=== PATIENT | female | born 1930 | race Caucasian/White ===

== ENCOUNTER 2017-01-04 12:49 | Inpatient (IN) | payer MEDICARE ==
[~2017-01-04] VITALS: Ht 165.1 cm; Wt 73.1 kg
--- NOTE | ~2017-01-04 | HP ---
History And Physical [place] [id number] [facility]. [address] NAME: PRIETO EPPS : [birth year] STATUS : ADM IN [facility]#: [id number] AGE: 86 ADM/REG DATE : 01/04/17 MR#: [id number] REPORT SERV DATE: 01/05/17 DICTATED BY: GINA EDWARDS DATE: 01/04/17 REPORT STATUS : Draft TRANSCRIBED BY: MODL DATE: 01/04/17 DATE OF ADMISSION: 01/04/2017 REASON FOR ADMISSION: Altered mental status in face of ongoing therapy for glioblastoma multiforme. HISTORY: This is an 86-year-old white female, who underwent neurosurgical resection by Dr. Ramiro Pritchard for glioblastoma multiforme. She recovered fairly well with some confusion only at baseline and was seen by Dr. Pacheco and Dr. Roth for followup therapy. Most of the tumor was resected. 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 The patient was going up and down stairs and doing laundry yesterday, but last night, began to become more lethargic, withdrawn, and having trouble with her speech. She continued to have problems now with nausea and vomiting, was brought to the emergency room, where she was evaluated by Dr. Kait Ching. Her CT scan of the brain did show some swelling in the right temporoparietal and occipital lobes with mild left shift. Dr. Ching discussed this with Dr. Do, who desire that she be admitted to the hospital by the hospitalist and started on steroids and consult Oncology. The patient is being admitted to the hospital for staging and evaluation by the oncologist. PAST MEDICAL HISTORY: She has hypothyroidism, history of acid reflux, lumpectomy in 1988 with postoperative radiation therapy for early stage breast cancer. She had hysterectomy in 1958, rotator cuff repair in 1989, and previous radiation therapy to right breast. FAMILY HISTORY: Mother had breast cancer. She has sister with breast cancer. She has one son who is alive and well, he denies health problems. SOCIAL HISTORY: She was to Mr. Rudolph initially, they , they had one son. She lives in his home now. Her second after about 50 years of marriage, and she continues to live with her son now. She had did not smoke or take any alcohol. She attends jain at [employer] and lives in that area. ALLERGIES: SULFA DRUGS. HOME MEDICATIONS: Yet to be identified. REVIEW OF SYSTEMS: Not obtainable from the patient. History is obtained from son and [id number] and old record. Otherwise negative review of systems. PHYSICAL EXAMINATION: GENERAL: This is an elderly white female, appearing younger than stated age, in moderate distress. She favors the right side and moves to the right side, but has no shaking or jerking. She says only two words, oh no and oh Lord. She seems to understand my directive for evaluation and does protrude her tongue when prompted verbally. History And Physical [address] [place]. [address] NAME: PRIETO EPPS : [birth year] STATUS : ADM IN [facility]#: [id number] AGE: 86 ADM/REG DATE : 01/04/17 MR#: [id number] REPORT SERV DATE: 01/05/17 DICTATED BY: GINA EDWARDS DATE: 01/04/17 REPORT STATUS : Draft TRANSCRIBED BY: HERNANDEZ DATE: 01/04/17 VITAL SIGNS: Her blood pressure was 153/70 with heart rate 90, respiratory rate 20, 94. HEENT: EOMI. Sclerae clear. Conjunctivae pink. Head, there is evidence of craniotomy right posteroparietal with hair regrowing now. NECK: No bruit, without any JVD. CHEST: Clear to A and P. HEART: Regular S1, S2 without murmur, gallop, or click. ABDOMEN: Soft and nontender. Bowel sounds are positive. EXTREMITIES: Have no edema. Distal pulses are intact with dorsalis pedis and posterior tibial. NEUROLOGIC: She moves both right and left. Tends to roll to the right side. Will not follow neurologic commands except to protrude her tongue, and she does comply with this. Sensory and motor, unable to be tested. There is no shaking, but she has slight quivering of her lower jaw. LYMPHATICS: There is no adenopathy palpable. SKIN: She has postoperative changes in the right posteroparietal region. LABORATORY DATA: CT scan of the brain shows edema in the right temporal, occipital, and parietal lobes with mild diffuse mass effect and minimal leftward shift from midline. Previous mass identified on MRI is not present. There is atrophy with chronic deep white matter disease, but no evidence of intracranial hemorrhage. Sodium 136, potassium 3.5, creatinine 0.75, BUN 14, glucose 100, total protein 7.3, albumin 3.4. Her TSH was 0.14 and AST was 54 slightly elevated. Otherwise, liver tests were normal. The urinalysis showed a specific gravity 1.017, negative dip, 2 white cells per high-powered field. The ammonia level was 15, her hemoglobin was 13.0, hematocrit 39.6, white count 8.2, platelets 165,000. ASSESSMENT: 1. Acute encephalopathy with acute onset last evening. 2. Associated nausea and vomiting. 3. Mass effect with edema on the right side causing minimal midline shift. Dr. Roth is treating with radiation therapy. We will consult Dr. Roth for evaluation. She will be treated with IV steroids. If mannitol is indicated, Dr. Roth or Dr. White may order that. 4. Possible early dehydration, though she drank some water. 5. No seizure nor seizure prophylaxis. PLAN: IV Decadron. ADDENDUM: Home medications will be reviewed and are being identified at this point. DB/HERNANDEZ Gina Edwards M.D. History And Physical [address] [address] NAME: PRIETO EPPS : [birth year] STATUS : ADM IN [facility]#: [id number] AGE: 86 ADM/REG DATE : 01/04/17 MR#: [id number] REPORT SERV DATE: 01/05/17 DICTATED BY: GINA EDWARDS DATE: 01/04/17 REPORT STATUS : Draft TRANSCRIBED BY: MODL DATE: 01/04/17 / [id number] CC: MD Aden Henson II, M.D. Davey B. Daniel, M.D.
--- NOTE | ~2017-01-04 | DS ---
Discharge Summary [facility] [address] [place]. [address] NAME: PRIETO EPPS : [birth year] STATUS : ADM IN [facility]#: [id number] AGE: 86 ADM/REG DATE : 01/04/17 MR#: [id number] REPORT SERV DATE: 01/07/17 DICTATED BY: MAURILIO HICKS DATE: 01/07/17 REPORT STATUS : Draft TRANSCRIBED BY: MODL DATE: 01/07/17 ADMISSION DATE: 01/04/2017 DISCHARGE DATE: 01/07/2017 DISCHARGE DIAGNOSES: 1. Acute encephalopathy most likely due to cerebral edema. 2. Glioblastoma with recent resection. 3. Mass effect with cerebral edema. 4. Dehydration. 5. Hypothyroidism. CONSULTANTS DURING THE HOSPITALIZATION: Dr. Roth of Radiation Oncology. Dr. Yanna White of Hematology/Oncology. INVASIVE PROCEDURES DONE DURING THIS HOSPITALIZATION: None. BRIEF HISTORY OF PRESENT ILLNESS: The patient is an 86-year-old female with recent glioblastoma multiforme resected at [place], was seen by Dr. White and Dr. Roth for followup therapy, and the patient became more lethargic, withdrawn, and having trouble with speech, so she was admitted. For detailed history and physical exam, please see note dictated by Dr. Clyde Connors on 01/04/2017. HOSPITAL COURSE: After being admitted to the hospital, this patient was placed on IV steroids. There was no evidence of any seizures, so seizure prophylaxis was not used. Dr. Yanna White saw the patient in consultation and suspected that this seems to be treatment related edema and not actual recurrent tumor. She agreed with the steroids, and we ordered an MRI of the brain. This patient with steroids continued to improve. However, she had significant debility and so it was decided that she would need rehab. Dr. Roth saw the patient in consultation as well and recommended continuing of steroids and hold XRT today and followup post discharge. MRI showed increased enhancement, impression by Dr. White was that this was pseudo progression from XRT rather than real progression of the disease that was discussed with the son. Steroids were changed to oral and the patient was doing well enough that she is ready for rehab. DISCHARGE DISPOSITION: To rehab. DISCHARGE ACTIVITY: Per facility. DISCHARGE DIET: Low sodium diet. DISCHARGE MEDICATIONS: Dexamethasone 4 mg p.o. every six hours, Colace 240 mg p.o. twice daily, Cymbalta 60 mg once daily, levothyroxine 88 mcg once daily, Prilosec 20 mg twice daily, trazodone 50 mg once at bedtime, and Temodar 50 mg daily 21 day cycle according to the family and then 20 mg p.o. daily for 21 days and then 100 mg p.o. daily. This could be held until rehab is complete. Discharge Summary [address] [address] NAME: PRIETO EPPS : [birth year] STATUS : ADM IN [facility]#: [id number] AGE: 86 ADM/REG DATE : 01/04/17 MR#: [id number] REPORT SERV DATE: 01/07/17 DICTATED BY: MAURILIO HICKS DATE: 01/07/17 REPORT STATUS : Draft TRANSCRIBED BY: HERNANDEZ DATE: 01/07/17 DISCHARGE FOLLOWUP: With Dr. Yanna White post rehab and with Dr. Alejandro Roth post discharge. More than 30 minutes spent planning this patient's discharge, reconciling medications, discussing hospital care, and follow up with the son and arranging rehab and documenting this discharge. TAYLOR/HERNANDEZ Maurilio Hicks M.D. / [id number] CC: Franky Hitchcock M.D. John A Fortney, M.D. Brooke R. Daniel, M.D.
[~2017-01-04 12:49] MED LIST: EVISTA60 PO; NEXIUM40 PO; PAX10 PO
[2017-01-04 14:25] LABS: BASOPHILS 0.1 %; BASOPHILS ABSOLUTE 0.01 10/3/uL (0.0-0.16); EOSINOPHILS 0 %; HEMATOCRIT 39.6 % (36.0-48.0); IMMATURE GRANULOCYTES 0.1 %; IMMATURE GRANULOCYTES ABSOLUTE 0.01 10/3/uL (0.0-0.11); LYMPHOCYTES 7.9 %; LYMPHOCYTES ABSOLUTE 0.65 10/3/uL (0.67-4.30); MEAN CORPUS HGB CONC 32.8 g/dL (32.0-36.0); MEAN CORPUSCULAR HEMOGLOB 28.6 pg (26.0-34.0); MEAN CORPUSCULAR VOLUME 87.2 fL (80-100); MEAN PLATELET VOLUME 10.8 fL (9.2-13.0); MONOCYTES 11.2 %; MONOCYTES ABSOLUTE 0.92 10/3/uL (0.21-1.20); NEUTROPHILS 80.7 %; PLATELET COUNT 165 10/3/uL (150-400); RBC DISTRIBUTION WIDTH 14.3 % (12.0-16.0); RED CELL COUNT 4.54 10/6/uL (4.0-5.6); WHITE BLOOD CELLS 8.2 10/3/uL (4.5-10.5)
[2017-01-04 14:26] LABS: MANUAL DIFF NO %
[2017-01-04 14:46] LABS: ASCORBIC ACID (UR NOT ORDER) NEG (NEG); BILIRUBIN, URINE NEGATIVE (NEG); ER URINALYSIS TAT 0 Hrs 11 Mins; KETONE, URINE 20 MG/DL (NEG); LEUKOCYTE ESTERASE(NOT OR NEG (NEG); NITRITE (URINE) NEG (NEG); WBC (NOT ORDERED) (RFLEX) 2 (0-5)
[2017-01-04 14:47] LABS: A/G RATIO 0.9 (0.7-1.9); ALBUMIN 3.4 G/DL (3.5-5.0); ALKALINE PHOSPHATASE 96 U/L (45-117); BUN (BLOOD UREA NITROGEN) 14 MG/DL (6-23); CALCIUM, SERUM 9.2 MG/DL (8.5-10.4); CHLORIDE, SERUM 100 MMOL/L (96-112); CO2 (CARBON DIOXIDE) 27 MMOL/L (24-34); CREATININE 0.75 MG/DL (0.55-1.02); GFR AFRICAN AMERICAN 82 ML/MIN (>=60); GFR NON AFRICAN AMERICAN 71 ML/MIN (>=60); GLOBULIN 3.9 G/DL (2.5-4.1); GLUCOSE, SERUM 100 MG/DL (60-99); POTASSIUM, SERUM 3.5 MMOL/L (3.5-5.3); SGOT(AST) 54 U/L (5-40); SGPT(ALT) 47 U/L (5-65); SODIUM, SERUM 136 MMOL/L (135-148); TOTAL BILIRUBIN 0.7 MG/DL (0-1.2); TOTAL PROTEIN 7.3 G/DL (6.0-8.5); ULTRASENSITIVE TSH 0.114 MCIU/ML (0.358-3.740)
[2017-01-04] MEDS ORDERED: LEVOTHYROXIN88 MCG PO (17:43)
[2017-01-04] MEDS ORDERED: CYMBALTA60 PO (17:43)
[2017-01-04] MEDS ORDERED: TRAZ50 PO (17:44)
[2017-01-04] MEDS ORDERED: PRILO PO (17:45)
[2017-01-04] MEDS ORDERED: TEMOZOLOMIDE PO (17:52)
[2017-01-04] MEDS ORDERED: TEMODAR 100 MG100 MG PO (17:53)
[2017-01-04] MEDS ORDERED: TEMOZOLOMIDE 20 MG PO (17:53)
[2017-01-04] MEDS ORDERED: STOOL SOFTEN240 MG PO (17:54)
[2017-01-04] MEDS ORDERED: AUG875 PO (17:55)
[2017-01-05 06:51] LABS: BUN (BLOOD UREA NITROGEN) 13 MG/DL (6-23); CALCIUM, SERUM 9.7 MG/DL (8.5-10.4); CHLORIDE, SERUM 108 MMOL/L (96-112); CO2 (CARBON DIOXIDE) 24 MMOL/L (24-34); CREATININE 0.82 MG/DL (0.55-1.02); GFR AFRICAN AMERICAN 74 ML/MIN (>=60); GFR NON AFRICAN AMERICAN 64 ML/MIN (>=60); POTASSIUM, SERUM 3.5 MMOL/L (3.5-5.3); SODIUM, SERUM 141 MMOL/L (135-148)
[2017-01-05 06:52] LABS: GLUCOSE, SERUM 135 MG/DL (60-99)
[2017-01-06 05:46] LABS: BASOPHILS 0.1 %; BASOPHILS ABSOLUTE 0.01 10/3/uL (0.0-0.16); EOSINOPHILS 0 %; HEMATOCRIT 36.9 % (36.0-48.0); HEMOGLOBIN 11.8 g/dL (12.0-16.0); IMMATURE GRANULOCYTES 0.2 %; IMMATURE GRANULOCYTES ABSOLUTE 0.03 10/3/uL (0.0-0.11); LYMPHOCYTES ABSOLUTE 0.38 10/3/uL (0.67-4.30); MANUAL DIFF NO %; MEAN CORPUSCULAR HEMOGLOB 28.3 pg (26.0-34.0); MEAN CORPUSCULAR VOLUME 88.5 fL (80-100); MEAN PLATELET VOLUME 11.9 fL (9.2-13.0); MONOCYTES 8.4 %; MONOCYTES ABSOLUTE 1.06 10/3/uL (0.21-1.20); NEUTROPHILS 88.3 %; NEUTROPHILS ABSOLUTE 11.19 10/3/uL (2.02-8.40); PLATELET COUNT 175 10/3/uL (150-400); RBC DISTRIBUTION WIDTH 14.7 % (12.0-16.0); RED CELL COUNT 4.17 10/6/uL (4.0-5.6); WHITE BLOOD CELLS 12.7 10/3/uL (4.5-10.5)
[2017-01-06 05:48] LABS: ALBUMIN 2.8 G/DL (3.5-5.0); BUN (BLOOD UREA NITROGEN) 15 MG/DL (6-23); CALCIUM, SERUM 10.1 MG/DL (8.5-10.4); CHLORIDE, SERUM 110 MMOL/L (96-112); CO2 (CARBON DIOXIDE) 26 MMOL/L (24-34); CREATININE 0.66 MG/DL (0.55-1.02); GFR AFRICAN AMERICAN 91 ML/MIN (>=60); GFR NON AFRICAN AMERICAN 79 ML/MIN (>=60); GLUCOSE, SERUM 114 MG/DL (60-99); PHOSPHORUS, SERUM 3.4 MG/DL (2.5-4.5); POTASSIUM, SERUM 4.3 MMOL/L (3.5-5.3); SODIUM, SERUM 143 MMOL/L (135-148)
== END 2017-01-07 21:28 | disposition home or self-care (01) | DRG 54 ==
LOC: ENRESERVTM → ENRESERVDT → ENRESERV → ER 12:49 → 4SO 18:54 → ENPENDDIS 18:54 → 4SO 19:05
PROVIDERS: Internal Medicine; Student in an Organized Health Care Education/Training Program
DX: C71.9 Malignant neoplasm of brain, unspecified (principal); G93.6 Cerebral edema; G93.40 Encephalopathy, unspecified; E86.0 Dehydration; E03.9 Hypothyroidism, unspecified; R53.81 Other malaise
CPT/HCPCS: 70450; 70553; 71010; 80048; 80053; 80069; 81001; 82140; 82962; 84443; 85025; 96374; 97162-GP; 97530-GP; 99285; A9270-GY; A9577; G8978-CM-GP; G8979-CL-GP; J2150; J2405